=== PATIENT | female | born 1955 | race African-American/Black ===

== ENCOUNTER 2016-07-08 05:41 | Emergency (ER) | payer OTHER ==
[~2016-07-08] VITALS: Ht 170.2 cm; Wt 105.2 kg
[~2016-07-08 05:41] MED LIST: ACETAMINOPHEN-1 EAC1 ORAL; ALBUTEROL2.5 MG/3 M HHN; ASPIRIN EC81 MG ORAL; ATROVENT HFA12.9 GM IH; BENAZEPRIL HCL40 MG ORAL; CARVEDILOL3.125 MG ORAL; DOCUSATE SODIU100 MG ORAL; HUMALOG100 UNIT/3 SUBQ; HUMALOG100 UNIT/4 SUBQ; IMDUR30 MG ORAL; KEPPRA500 MG ORAL; LANTUS5 UNITS SUBQ; LASIX40 MG ORAL; LIPITOR20 MG ORAL; PLAVIX75 MG ORAL; RANEXA500 MG PO; SPIRONOLACTONE50 MG PO
[2016-07-08] MEDS ORDERED: LORazepam Inj 2mg/ml 1ml IV ONE (06:00)
[2016-07-08 06:15] LABS: BASOPHILS % (AUTO) 1.7 % (0.0-2.0); EOSINOPHILS % (AUTO) 1.7 % (0.0-3.0); LYMPHOCYTES % (AUTO) 28.3 % (20.0-45.0); MEAN CORPUSCULAR HEMOGLOBIN 24.9 PG (27.0-31.0); MEAN CORPUSCULAR HGB CONC 30.5 G/DL (32.0-36.0); MEAN CORPUSCULAR VOLUME 82 FL (80-99); MEAN PLATELET VOLUME 7.9 FL (6.5-10.1); MONOCYTES % (AUTO) 10.9 % (1.0-10.0); NEUTROPHILS % (AUTO) 57.4 % (45.0-75.0); PLATELET COUNT 207 K/UL (150-450); RED BLOOD COUNT 5.04 M/UL (4.20-5.40); RED CELL DISTRIBUTION WIDTH 17.4 % (11.6-14.8); WHITE BLOOD COUNT 5.6 K/UL (4.8-10.8)
[2016-07-08 06:18] VITALS: BP 160/74
--- NOTE | 2016-07-08 06:20 | Emergency Room Report ---
History of Present Illness General Chief Complaint: Pacemaker/Defibrillator Source: Patient Present Illness HPI This is a 60-year-old female with extensive cardiac history. She has multiple stents, MA, AICD placement. She presents with chief complaint of chest pain. She woke up with sharp stabbing pain. She thought that her later was going off. She said his been going off constantly since she called 911. Even as I was talking to her she said is going off. Denied radiation. Denies any fever or chills. Denies any nausea vomiting. Denies any diaphoresis. Allergies: Coded Allergies: HEPARIN ANALOGUES (Verified Allergy, Unknown, EDEMA, 02/17/12) HYDROCODONE (Verified Allergy, Unknown, 08/20/11) ORANGE JUICE (Verified Allergy, Unknown, 06/05/16) Uncoded Allergies: ORANGE JUICE (Allergy, Unknown, 08/20/11) Patient History Past Medical History: see triage record, old chart reviewed, HTN, CAD, CHF Past Surgical History: pacemaker Pertinent Family History: none Social History: Denies: smoking Last Menstrual Period: NA Now: No Immunizations: other Reviewed Nursing Documentation: PMH: Agreed, PSxH: Agreed Nursing Documentation-PMH Hx Hypertension: Yes - 3 bypass, 10 stents placement Hx Pacemaker: Yes - defibrilator Hx Asthma: Yes Hx Diabetes: Yes Hx Neurological Problems: Yes - cva left side weakness Hx Cerebrovascular Accident: Yes Hx Seizures: Yes Hx Fatigue: Yes Review of Systems Eye: Denies: blurred vision, eye pain ENT: Denies: ear pain, nose congestion, throat swelling Respiratory: Denies: cough, shortness of breath Cardiovascular: Reports: chest pain, Denies: palpitations Gastrointestinal: Denies: abdominal pain, diarrhea, nausea, vomiting Musculoskeletal: Denies: back pain, joint pain Skin: Denies: rash Neurological: Denies: headache, numbness Endocrine: Denies: increased thirst, increased urine Hematologic/Lymphatic: Denies: easy bruising All Other Systems: negative except mentioned in HPI Physical Exam Vital Signs Date Time Temp Pulse Resp B/P Pulse Ox O2 Delivery O2 Flow Rate FiO2 07/08/16 05:40 97.2 60 22 159/77 98 Room Air vitals with hypertension Sp02 EP Interpretation: reviewed, normal General Appearance: well appearing, no apparent distress, alert, obese Head: normocephalic, atraumatic Eyes: bilateral eye EOMI, bilateral eye PERRL ENT: hearing grossly normal, normal pharynx Neck: full range of motion, supple, no meningismus Respiratory: chest non-tender, lungs clear, normal breath sounds Cardiovascular #1: regular rate, rhythm, no murmur Gastrointestinal: normal bowel sounds, non tender, no mass, no organomegaly, no bruit, non-distended Musculoskeletal: back normal, normal range of motion Neurologic: alert, oriented x3 Psychiatric: anxious Skin: warm/dry Medical Decision Making Diagnostic Impression: Primary Impression: Chest pain Qualified Codes: R07.9 - Chest pain, unspecified Additional Impressions: Hypertension Qualified Codes: I10 - Essential (primary) hypertension Obesity (BMI 30-39.9) Cardiomyopathy Qualified Codes: I42.9 - Cardiomyopathy, unspecified Anxiety about health ER Course Is presents with chest pain. She thinks that her defibrillator is going off. This is not the case. There is no evidence of firing. EKG is a sinus. Monitor it showed no evidence of defibrillator firing. This is most likely secondary to her anxiety and stress. She's been admitted multiple time for chest pain. Workup unremarkable. Because of her extensive cardiac history will admit or transfer based on her insurance. I will sign this patient out to Dr. Hutton for final disposition. Patient said that she felt better now. She knows that if she did be transferred to in an up at [facility]. She does not want to be transferred there. She preferred to go home. Her daughter didn't take her to [facility] where her doctor is if she still having problem. She has recent workup on her heart it was negative. Lab Results Impression labs unremarkable EKG Diagnostic Results Rate: normal Rhythm: NSR ST Segments: no acute changes Rhythm Strip Diag. Results EP Interpretation: yes Rate: 60 Rhythm: NSR, no PVC's, no ectopy Chest X-Ray Diagnostic Results EP Interpretation: Yes Findings: no consolidation, no effusion, no pneumothorax, no acute cardiopulmonary disease Number of Views: 1 Last Vital Signs Date Time Temp Pulse Resp B/P Pulse Ox O2 Delivery O2 Flow Rate FiO2 07/08/16 05:40 97.2 60 22 159/77 98 Room Air Status: improved Disposition: HOME, SELF-CARE Condition: Serious Referrals: [facility]ERR[facility] (PCP) Patient Instructions: CHEST PAIN, Uncertain Cause Additional Instructions: Followup with your Dr. schneider 2-3 days. Return if symptom worsen. OBI WAGNER M.D. Jul 08, 2016 06:20
[2016-07-08 06:28] LABS: ALBUMIN/GLOBULIN RATIO 0.9 (1.0-2.7); CALCIUM 9.3 mg/dL (8.6-10.2); CREATININE 1.2 mg/dL (0.5-0.9); GLOMERULAR FILTRATION RATE 55.1 mL/min (>60); POTASSIUM 4.3 mEQ/L (3.4-4.9); TOTAL PROTEIN 7.9 g/dL (6.6-8.7); TROPONIN I < 0.30 ng/mL (<=0.30)
[2016-07-08 06:38] LABS: CKMB 3.6 ng/mL (< 3.8)
[2016-07-08] MEDS ORDERED: Aspirin Baby 81mg ONE (06:52)
[2016-07-08 07:00] VITALS: BP 160/74
[2016-07-08] MEDS ORDERED: Aspirin Baby 81mg ORAL ONE (07:00)
--- NOTE | 2016-07-08 13:34 | Diagnostic Imaging Report ---
Indication: Chest pain Technique: One view of the chest Comparison: 06/05/2016 Findings: Atelectatic changes and/or scarring are seen at both lung bases. No focal airspace consolidation. There is a left chest unifocal AICD again demonstrated. The heart size borderline enlarged. There are median sternotomy sutures. Previously demonstrated interstitial congestive changes have largely resolved. Interstitium appears prominent is appears to be chronic, most of the basis of bronchial wall thickening Impression: No definite acute process. Bibasilar atelectasis and/or scarring. Bronchial wall thickening, suspect chronic
--- NOTE | 2016-07-13 19:23 | Cardiology Report ---
APPROVED REPORT EKG Measurement Heart [id number] Normal sinus rhythm Possible Left atrial enlargement Anteroseptal infarct, age undetermined Abnormal ECG
== END 2016-07-08 07:00 | disposition home or self-care (01) ==
LOC: EDBD 05:41 → EMR 05:49
DX: R07.89 Other chest pain (principal); I10 Essential (primary) hypertension; E66.9 Obesity, unspecified; Z68.36 Body mass index [BMI] 36.0-36.9, adult; F41.9 Anxiety disorder, unspecified; I25.10 Atherosclerotic heart disease of native coronary artery without angina pectoris; Z95.810 Presence of automatic (implantable) cardiac defibrillator; I50.9 Heart failure, unspecified; J45.909 Unspecified asthma, uncomplicated; I25.2 Old myocardial infarction; I69.354 Hemiplegia and hemiparesis following cerebral infarction affecting left non-dominant side; E11.9 Type 2 diabetes mellitus without complications; Z95.1 Presence of aortocoronary bypass graft; Z95.5 Presence of coronary angioplasty implant and graft
CPT/HCPCS: 36415; 71010; 80053; 82550; 82553; 83880; 84484; 85025; 93005; 96374